=== PATIENT | female | born 1995 | race African-American/Black ===

== ENCOUNTER 2023-10-02 12:48 | Emergency (ER) | payer OTHER, SELFPAY ==
[2023-10-02 12:53] VITALS: BP 111/84
[2023-10-02 14:00] VITALS: BP 117/85
--- NOTE | 2023-10-02 14:00 | ED.GENMED ---
History of Present Illness
General
Chief Complaint: Dehydration Symptoms
Source: patient
Time Seen by Provider: 10/02/23 13:29
History of Present Illness
History of Present Illness:
28yoF with a history of peptic ulcer disease and anxiety presenting for evaluation of dehydration symptoms. She reports feeling nauseous for the past 2-3 days. She had one episode of vomiting yesterday and one today. She also reports lightheadedness
and shortness of breath. She has a headache which she believes is from being dehydrated. She ran out of her Zofran at home which typically helps. The triage note documents abdominal pain which patient states is chronic for her due to her history of
ulcers and is no worse today.
Past History
Past History
ED Past Medical History: Asthma, GERD and Other (Left ovarian cyst)
ED Past Surgical History: None
Patient has exhibited threatening behavior?: No
PSI?: No
Social History
Tobacco: Smoker
Alcohol: None
Drug: None
Personal: Single
Living: with family
Employment: Employed
Phy Exam
General Physical Exam
General Presentation: well appearing and no apparent distress
General age: appears stated age
General Skin: warm and dry
General Habitus: normal
General Mental: alert
Cardiovascular Exam
Cardiovascular Exam: regular rate/rhythm and no murmur
Pulmonary Exam
Pulmonary Exam: lungs clear, no respiratory distress, no crackles and no wheezing
Gastrointestinal Exam
Gastrointestinal Exam: non tender, soft and non distended
Skin Exam
Skin Exam: normal color and warm/dry
Psychiatric Exam
Psychiatric Exam: normal mood/affect
Course
Orders/Labs/Results
Orders:
Orders
10/02/23 13:45
Electrocardiogram (*1) Urgent
Reason for Study: Chest Pain
EKG- Treatment ONCE
0.9% Sodium Chloride 1000 ml [Nss] 1,000 ml IV BOLUS
Ondansetron Injectable [Zofran] 4 mg IV NOW STA
Test Result ONCE
10/02/23 13:46
CR Chest - 2 Views Urgent
Comment:
Reason For Exam: SOB
10/02/23 13:47
Complete Blood Count/With Diff Urgent
Comprehensive Metabolic Panel Urgent
HCG, Serum Qualitative Screen Urgent
Magnesium Urgent
Manual Differential Urgent
10/02/23 13:55
Acetaminophen [Tylenol] 1,000 mg PO NOW STA
Abnormal Lab Results
10/02/23
13:47
RBC 3.58 L 10^6/uL
(4.20-5.40)
Hct 33.8 L %
(37.0-47.0)
MCH 33.5 H pg
(27.0-31.0)
MPV 11.3 H fL
(7.4-10.4)
Segmented Neutrophils 27 L %
(42-75)
Lymphocytes (Manual) 68 H %
(20-51)
10/02/23 13:47
10/02/23 13:47
Vital Signs
Initial and Last Documented VS:
Initial Vital Signs
Temp Pulse Resp BP Pulse Ox
99.7 F 98 18 111/84 98
10/02/23 12:53 10/02/23 12:53 10/02/23 12:53 10/02/23 12:53 10/02/23 12:53
Last Documented Vital Signs
Temp Pulse Resp BP Pulse Ox
99.7 F 81 17 117/85 100
10/02/23 12:53 10/02/23 14:00 10/02/23 14:00 10/02/23 14:00 10/02/23 14:00
MDM/Problems Addressed
Differential Diagnosis Includes:
28yoF here with nausea, lightheadedness, and intermittent vomiting x several days. Patient feeling dehydrated. She is afebrile and hemodynamically stable. She is well appearing in no distress. Exam is reassuring. Differential diagnosis includes but
is not limited to: dehydration, electrolyte abnormality, gastroenteritis,
Initial ED plan: Check abdominal labs, HCG, EKG, and CXR. No indication for abdominal imaging given benign exam. IV Zofran and fluid bolus for symptoms.
*EKG
Interpreted by ED Provider?: Yes
EKG Intrepretation Date: 10/02/23
EKG Intrepretation Time: 14:05
Heart Rate: 76
Rate: normal
Rhythm: sinus
[place]: normal axis
Interval: normal interval
QRS Pattern: normal QRS
Ischemia: no ischemia
*Critical Care Note
Total Time (30-74mins, 75-104mins- exclusive of procedures): Not Applicable
Update Note
Update Note:
Labs overall unremarkable including normal white count, electrolytes, renal function, LFTs. HCG is negative. EKG shows NSR without ischemic changes. CXR is clear. Patient is feeling significantly improved on reassessment and is tolerating PO intake.
She is stable for discharge. Script for Zofran provided. Advised close f/u with PCP. ED return precautions discussed. She expressed understanding and is agreeable to plan. Patient was discharged in stable condition.
ED Attending Note
-
Portions of this chart may have been created with voice recognition software.� Occasional wrong word or��sound alike� substitutions may have occurred due to the inherent limitations of voice recognition software.
Discharge Plan
Departure
Patient Disposition: Home (Routine Discharge)
Date of Disposition: 10/02/23
Time of Disposition: 15:34
Patient with high blood pressure during this ER visit?: No
Discharge Problem:
Nausea and vomiting
Instructions: Nausea and Vomiting, Adult (DC)
Prescriptions:
New
ondansetron 4 mg tablet,disintegrating
4 mg PO Q6H PRN (Reason: nausea and vomiting) Qty: 20 0RF
No Action
albuterol sulfate 90 mcg/actuation HFA aerosol inhaler
2 puff inhalation Q6H PRN (Reason: wheezing) Qty: 8.5 1RF
ondansetron 4 mg tablet,disintegrating
4 mg PO TIDPRN PRN (Reason: nausea/vomiting) Qty: 7 0RF
pziujdzfam-xyzvqtrieoylx-kjfg [Fioricet] 50-300-40 mg capsule
1 cap PO Q8H PRN (Reason: headache) Qty: 12 0RF
cefdinir 300 mg capsule
300 mg PO BID Qty: 14 0RF
phenazopyridine [Pyridium] 200 mg tablet
200 mg PO TID Qty: 6 0RF
doxycycline monohydrate 100 mg capsule
100 mg PO BID Qty: 14 0RF
Referrals:
UNKNOWN - PT DOES,NOT KNOW [Family Provider] -
Stand Alone Forms: Return to Work
Activity Restrictions/Additional Instructions:
Take Zofran as needed for nausea. Drink plenty of fluids and eat a bland diet (rice, applesauce, toast).
Please follow-up with your family doctor. Return to the ER with any worsening symptoms.
Interventions
Interventions:
*Risk Screen - Suicide Last Done: 10/02/23 12:53
*General Assessment Last Done: 10/02/23 12:53
*Neglect/Abuse Screening Last Done: 10/02/23 12:53
ED- Fall Risk Assessment Last Done: 10/02/23 16:39
*Nursing Disposition Last Done: 10/02/23 16:39
ED- Cardiac Assessment Last Done: 10/02/23 14:04
ED- Neurological Assessment Last Done: 10/02/23 14:04
ED- Pulmonary Assessment Last Done: 10/02/23 14:04
Discharge Date and Time
Discharge Date/Time: 10/02/23 16:40
Print Language: DIVEHI
[2023-10-02 14:02] LABS: Hematocrit 33.8 % (37.0-47.0); Mean Corp Hgb Conc. 35.5 g/dL (33.0-37.0); Mean Corpuscular Hgb 33.5 pg (27.0-31.0); Mean Corpuscular Volume 94.4 fL (81.0-99.0); Mean Platelet Volume 11.3 fL (7.4-10.4); Platelet Count 200 10^3/uL (130-400); Red Blood Cell Count 3.58 10^6/uL (4.20-5.40); Red Cell Dist. Width 12.9 % (11.5-14.5); White Blood Cell Count 5.8 10^3/uL (4.8-10.8)
[2023-10-02] MEDS: NSS 1000 IV (14:15)
[2023-10-02] MEDS: ZOFRAN 4 MG IV (14:15)
[2023-10-02] MEDS: TYLENOL 1000 MG PO (14:15)
[2023-10-02 14:17] LABS: HCG, Serum Qualitative Screen Negative
[2023-10-02 14:21] LABS: ALT (SGPT) 13 U/L (0-35); AST (SGOT) 21 U/L (14-36); Albumin 3.9 g/dl (3.5-5.0); Alkaline Phosphatase 47 U/L (38-126); Blood Urea Nitrogen 7 mg/dl (7-17); Calcium 9.2 mg/dl (8.4-10.2); Carbon Dioxide 29 mmol/L (22-30); Chloride 104 mmol/L (98-107); Glucose 80 mg/dl (70-99); Magnesium 1.8 mg/dl (1.6-2.3); Potassium 4.1 mmol/L (3.5-5.1); Sodium 139 mmol/L (135-145); Total Bilirubin 0.8 mg/dl (0.2-1.3); Total Protein 6.5 g/dl (6.3-8.2); eGFR > 60.00
[2023-10-02 14:43] LABS: Absolute Neutrophils -Man Diff 1.5 10^3/uL (1.4-6.5); Band Neutrophils 0 % (0-3); Eosinophils 1 % (0-6); Lymphocytes 68 % (20-51); Monocytes 4 % (2-9); Platelets Checked Yes; Segmented Neutrophils 27 % (42-75)
[2023-10-02 14:44] LABS: Normal RBC Morphology Yes; Total Cells Counted 100
== END 2023-10-02 16:40 | disposition home or self-care (01) ==
LOC: EMR 12:48
PROVIDERS: Physician Assistant; EMERGENCY PHYSICIAN Emergency Medicine
DX: R11.2 Nausea with vomiting, unspecified (principal); F41.9 Anxiety disorder, unspecified; J45.909 Unspecified asthma, uncomplicated; K21.9 Gastro-esophageal reflux disease without esophagitis; F17.200 Nicotine dependence, unspecified, uncomplicated; R51.9 Headache, unspecified; Z87.11 Personal history of peptic ulcer disease
CPT/HCPCS: 99283; 96374; 96361; 71046; 80053; 83735; 84703; 85025; 93005

== ENCOUNTER 2023-11-01 12:13 | Emergency (ER) | payer OTHER, SELFPAY ==
[2023-11-01] VITALS (7 sets, daily range): BP systolic 133–176; BP diastolic 91–100; BMI 20.5
--- NOTE | 2023-11-01 12:41 | ED.GENMED ---
History of Present Illness
General
Chief Complaint: Abdominal Symptoms
Source: patient
Exam Limitations: none
Time Seen by Provider: 11/01/23 12:32
Nursing documentation reviewed up to this point in time: agreed with
History of Present Illness
History of Present Illness:
28-year-old female with a past medical history of GERD, peptic ulcer disease presenting emergency department today with concerns of abdominal pain for the past few days and nausea and vomiting that started earlier this morning. Patient reports that
the pain is primarily in the epigastric region but radiates into the chest and tends to come and go. Patient notes 1 episode of loose stool earlier today but otherwise states that this has been normal for her. Patient denies any recent travel
outside the country, any recent antibiotics, any hematemesis, melena, rectal bleeding. Patient states that she follows with GI team at [facility] in [place]. Patient states that she took omeprazole 20 mg twice daily for a while but was
recently switched to pantoprazole 40 mg once daily. Patient denies history of intra-abdominal surgeries. Patient denies any fevers or chills, dizziness, lightheadedness.
Past History
Past History
ED Past Medical History: Asthma, GERD and Other (Left ovarian cyst)
ED Past Surgical History: None
Patient has exhibited threatening behavior?: No
PSI?: No
Social History
Tobacco: Smoker
Alcohol: None
Drug: None
Personal: Single
Living: with family
Employment: Employed
Review of Systems
Review of Systems
All Other Systems: ROS reviewed and negative except as documented in HPI and ROS
Phy Exam
Physical Exam
Physical Exam:
General: Patient is well appearing and in no acute distress; non-toxic
Skin: Warm and dry, no rashes or lesions
Head: Normocephalic, atraumatic
Eyes: Sclera non-icteric. EOMs intact.
Cardiac: Regular rate and rhythm, no murmurs
Pulm: Normal respiratory effort, no wheezes, rales, rhonchi
Abdomen: Mild epigastric abdominal tenderness to palpation. No palpable masses. Normoactive bowel sounds.
Neuro: CN II-XII intact, no focal neurologic deficits.
Psychiatric: Appropriate mood and affect.
Course
Orders/Labs/Results
Orders:
Orders
11/01/23 12:29
IV Insert/Care/Rem.- Treatment PRN
11/01/23 12:32
EKG [Electrocardiogram (*1)] Urgent
Reason for Study: Abdominal Pain
11/01/23 12:33
EKG- Treatment ONCE
11/01/23 12:36
Test Result ONCE
11/01/23 12:42
Complete Blood Count/With Diff Urgent
Comprehensive Metabolic Panel Urgent
HCG, Serum Qualitative Screen Urgent
Lipase Urgent
Urinalysis Reflex To Culture Urgent
Date Specimen was Collected: 11/01/23
Time Specimen was Collected: 12:29
11/01/23 13:21
Famotidine [Pepcid] 20 mg IV NOW STA
Ondansetron Injectable [Zofran] 4 mg IV NOW STA
11/01/23 13:30
US Abdomen Limited Urgent
Comment:
Reason For Exam: upper abdominal pain, LFT elevation
11/01/23 13:37
CR Obstruct Series W/pa Chest Urgent
Comment:
Reason For Exam: upper abdominal pain
11/01/23 13:48
0.9% Sodium Chloride 1000 ml [Nss] 1,000 ml IV BOLUS
11/01/23 16:25
Mag Hydrox/Al Hydrox/Simeth [Maalox] 30 ml Phenobarb/Hyoscy/Atropine/Scop [] 10 ml PO NOW
11/01/23 16:32
Mag Hydrox/Al Hydrox/Simeth [Maalox] 30 ml .ROUTE .STK-MED ONE
Phenobarb/Hyoscy/Atropine/Scop [] 10 ml .ROUTE .STK-MED ONE
Abnormal Lab Results
11/01/23
12:42
MCH 31.9 H pg
(27.0-31.0)
MPV 10.7 H fL
(7.4-10.4)
Absolute Lymphs (auto) 1.1 L 10^3/uL
(1.2-3.4)
Neutrophils % 80.8 H %
(42.2-75.2)
Lymphocytes % 15.0 L %
(20.5-51.1)
Glucose 111 H mg/dl
(70-99)
AST 261 H U/L
(14-36)
ALT 170 H U/L
(0-35)
11/01/23 12:42
11/01/23 12:42
Vital Signs
Initial and Last Documented VS:
Initial Vital Signs
Temp Pulse Resp BP Pulse Ox
98.7 F 54 20 176/99 100
11/01/23 12:17 11/01/23 12:17 11/01/23 12:17 11/01/23 12:17 11/01/23 12:17
Last Documented Vital Signs
Temp Pulse Resp BP Pulse Ox
98.7 F 77 18 134/95 100
11/01/23 12:17 11/01/23 17:48 11/01/23 17:48 11/01/23 17:48 11/01/23 17:48
MDM/Problems Addressed
Differential Diagnosis Includes:
ddx include gastritis, duodenitis, peptic ulcer disease, gastroenteritis, dyspepsia, pancreatitis, cholecystitis, choledocholithiasis
MDM/Problems Addressed:
Upper abdominal pain:
28-year-old female with a past medical history of GERD, peptic ulcer disease presenting emergency department today with concerns of abdominal pain for the past few days and nausea and vomiting that started earlier this morning. Patient reports that
the pain is primarily in the epigastric region but radiates into the chest and tends to come and go. On physical exam, she is well appearing and does not have significant tenderness. She is afebrile. Her lab work shows an elevation in her LFTs but
no leukocytosis. Ultrasound of the abdomen was obtained which was negative for biliary pathology, showed normal appearance of the pancreas. CXR shows moderate amount of stool within the colon but no radiographic evidence of obstruction or free
peritoneal air. Patient was treated with zofran, GI cocktail, fluids, did note a mild improvement in her symptoms. Suspect patient symptoms likely reflect dyspepsia. Advised patient to follow up with her GI and have her LFTs repeated. Patient stable
for discharge.
Chronic conditions affecting care:
GERD, asthma, hypothyroidism
Acute Exacerbation and/or Progression of Chronic Illness:
n/a
*Pulse Oximetry
Patient hypoxic: no
*Critical Care Note
Total Time (30-74mins, 75-104mins- exclusive of procedures): Not Applicable
Data Reviewed
Review of Other/Old Records Reveals: Records (reviewed ER physician documentation from 10/02/23 where patient was seen for nausea and vomiting, workup unremarkable at the time, sent home with zofran; ) and Discharge Summary (no discharge summaries in
[facility] to review )
Source: patient and records
Prescriptions/Medications Considered But Not Given:
n/a
Further Testing Considered But Not Given:
n/a
Patient Management
Escalation/DeEscalation of care consider admission/obs:
Reviewed case with my attendings Dr. Peña and Dr. Lomeli. Patient stable for discharge.
Update Note
Update Note:
Considering upper abdominal pain and elevation of LFTs, will obtain upper abdominal ultrasound to evaluate for biliary pathology.
ED Attending Note
-
Portions of this chart may have been created with voice recognition software.� Occasional wrong word or��sound alike� substitutions may have occurred due to the inherent limitations of voice recognition software.
Discharge Plan
Departure
Patient Disposition: Home (Routine Discharge)
Date of Disposition: 11/01/23
Time of Disposition: 16:48
Patient with high blood pressure during this ER visit?: Yes
Condition: Good
Discharge Problem:
Abdominal pain
Instructions: Yell Diet, Nausea and Vomiting, Adult (DC), Abdominal Pain
Prescriptions:
New
ondansetron 4 mg tablet,disintegrating
4 mg PO Q8H PRN (Reason: nausea and vomiting) Qty: 8 0RF
No Action
albuterol sulfate 90 mcg/actuation HFA aerosol inhaler
2 puff inhalation Q6H PRN (Reason: wheezing) Qty: 8.5 1RF
ondansetron 4 mg tablet,disintegrating
4 mg PO TIDPRN PRN (Reason: nausea/vomiting) Qty: 7 0RF
qondmjebhk-bczrxyxwjjecp-hpwy [Fioricet] 50-300-40 mg capsule
1 cap PO Q8H PRN (Reason: headache) Qty: 12 0RF
cefdinir 300 mg capsule
300 mg PO BID Qty: 14 0RF
phenazopyridine [Pyridium] 200 mg tablet
200 mg PO TID Qty: 6 0RF
doxycycline monohydrate 100 mg capsule
100 mg PO BID Qty: 14 0RF
ondansetron 4 mg tablet,disintegrating
4 mg PO Q6H PRN (Reason: nausea and vomiting) Qty: 20 0RF
Referrals:
UNKNOWN - PT DOES,NOT KNOW [Family Provider] -
Stand Alone Forms: Return to Work
Activity Restrictions/Additional Instructions:
Your liver function tests were elevated today. Please have these values repeated with GI doctor.
Your ultrasound was negative.
Zofran has been sent to your pharmacy. You can dissolve one tablet under the tongue every 8 hours as needed.
Please follow up with your primary care provider. Please return emergency department should you experience chest pain, shortness of breath, vomiting blood, dark tarry stools, lightheadedness, dizziness, fevers or chills, or any other signs or
symptoms concerning to you.
Interventions
Interventions:
*Risk Screen - Suicide Last Done: 11/01/23 12:17
*General Assessment Last Done: 11/01/23 12:27
*Neglect/Abuse Screening Last Done: 11/01/23 12:17
ED- Fall Risk Assessment Last Done: 11/01/23 12:27
*ED COVID-19 Vaccine History Last Done: 11/01/23 12:17
*Nursing Disposition Last Done: 11/01/23 17:48
SR-Vteidk-Pbjbsipmqk Assessment Last Done: 11/01/23 12:27
Discharge Date and Time
Discharge Date/Time: 11/01/23 17:49
Print Language: PORTUGUESE
[2023-11-01 12:50] LABS: Urine Albumin Negative (Neg - Trace); Urine Bilirubin Negative (Negative); Urine Character Clear (Clear); Urine Color Yellow; Urine Glucose Negative (Negative); Urine Ketone Negative (Negative); Urine Leukocyte Negative (Negative); Urine Nitrite Negative (Negative); Urine Occult Blood Negative (Negative); Urine Urobilinogen Negative (Neg - 1+)
[2023-11-01 12:53] LABS: % Basophils 0.4 % (0-2); % Eosinophils 0.4 % (0-6); % Immature Granulocytes 0.3 % (0-0.5); % Monocytes 3.1 % (1.7-9.3); % Neutrophils 80.8 % (42.2-75.2); Absolute Lymphocytes 1.1 10^3/uL (1.2-3.4); Absolute Monocytes 0.2 10^3/uL (0.1-0.6); Absolute Neutrophils 6.1 10^3/uL (1.4-6.5); Hematocrit 39.8 % (37.0-47.0); Hemoglobin 13.8 g/dL (12.0-16.0); Mean Corp Hgb Conc. 34.7 g/dL (33.0-37.0); Mean Corpuscular Hgb 31.9 pg (27.0-31.0); Mean Corpuscular Volume 92.1 fL (81.0-99.0); Mean Platelet Volume 10.7 fL (7.4-10.4); Nucleated Red Blood Cells % 0 %; Platelet Count 239 10^3/uL (130-400); Red Blood Cell Count 4.32 10^6/uL (4.20-5.40); Red Cell Dist. Width 13.2 % (11.5-14.5); White Blood Cell Count 7.5 10^3/uL (4.8-10.8)
[2023-11-01 13:01] LABS: HCG, Serum Qualitative Screen Negative
[2023-11-01 13:05] LABS: ALT (SGPT) 170 U/L (0-35); AST (SGOT) 261 U/L (14-36); Albumin 4.5 g/dl (3.5-5.0); Alkaline Phosphatase 71 U/L (38-126); Blood Urea Nitrogen 8 mg/dl (7-17); Calcium 9.9 mg/dl (8.4-10.2); Carbon Dioxide 28 mmol/L (22-30); Chloride 101 mmol/L (98-107); Estimated Creatinine Clearance > 125 ml/min; Glucose 111 mg/dl (70-99); Potassium 4.4 mmol/L (3.5-5.1); Sodium 136 mmol/L (135-145); Total Protein 7.5 g/dl (6.3-8.2); eGFR > 60.00
[2023-11-01] MEDS: PEPCID 20 MG IV (13:50)
[2023-11-01] MEDS: ZOFRAN 4 MG IV (13:50)
[2023-11-01] MEDS: NSS 1000 IV (13:53)
[2023-11-01 14:15] LABS: Lipase 51 U/L (23-300)
[2023-11-01] MEDS: MAALOX 40 PO (16:34)
--- NOTE | 2023-11-01 17:47 | EDRN ---
Reviewed discharge instructions with patient. Verbalized understanding.
== END 2023-11-01 17:49 | disposition home or self-care (01) ==
LOC: EMR 12:13
PROVIDERS: Emergency Medicine; EMERGENCY PHYSICIAN Emergency Medicine
DX: R10.13 Epigastric pain (principal); R11.2 Nausea with vomiting, unspecified; K21.9 Gastro-esophageal reflux disease without esophagitis; E03.9 Hypothyroidism, unspecified; F17.200 Nicotine dependence, unspecified, uncomplicated; J45.909 Unspecified asthma, uncomplicated; Z79.899 Other long term (current) drug therapy; Z87.11 Personal history of peptic ulcer disease
CPT/HCPCS: 99284; 96374; 96375; 96361; 74022; 76705; 80053; 81003; 83690; 84703; 85025; 93005

== ENCOUNTER 2023-12-09 16:22 | Emergency (ER) | payer OTHER, SELFPAY ==
[2023-12-09 16:24] VITALS: BP 129/65
--- NOTE | 2023-12-09 17:29 | EDRN ---
Lio MONTGOMERY currently at the pts bedside speaking with the pt and the pts family
--- NOTE | 2023-12-09 17:35 | ED.GENMED ---
History of Present Illness
General
Chief Complaint: Abdominal Symptoms
Source: patient and family
Exam Limitations: none
Time Seen by Provider: 12/09/23 16:56
Nursing documentation reviewed up to this point in time: agreed with
History of Present Illness
History of Present Illness:
28-year-old female past medical history of ovarian cysts anxiety depression and asthma presenting to the emergency department today with concerns of left-sided pelvic pain starting yesterday worsening today nausea and vomiting since yesterday as
well not able to eat or drink today also feels mildly lightheaded secondary to the pain. Had similar symptoms in the past from her fibroid or ovarian cyst. Denies any chest pain shortness of breath no significant changes in bowel movements.
Past History
Past History
ED Past Medical History: Asthma, GERD and Other (Left ovarian cyst)
ED Past Surgical History: None
Patient has exhibited threatening behavior?: No
PSI?: No
Social History
Tobacco: Smoker
Alcohol: None
Drug: None
Personal: Single
Living: with family
Employment: Employed
Review of Systems
Review of Systems
Allergies reviewed?: Yes
All Other Systems: ROS reviewed and negative except as documented in HPI and ROS
Phy Exam
Physical Exam
Physical Exam:
GENERAL: Alert , in no apparent distress
EYE: pupils equal and reactive
NECK: Supple, no significant adenopathy.
ENT: o/p clr, mmm.
CARDIAC: Regular rate and rhythm .
LUNGS: Clear breath sounds bilaterally, no acute respiratory distress, no wheezes/rales/rhonchi
ABDOMEN: Left-sided pelvic pain to palpation otherwise soft abdomen, remainder of the abdomen without focal tenderness, no r/g, no cvat
NEUROLOGICAL: Alert and oriented, no focal neuro deficits
SKIN: Warm and dry, skin intact.
MUSCULOSKELETAL: No edema, well perfused.
PSYCH: Normal and appropriate interaction.
Course
Orders/Labs/Results
Orders:
Orders
12/09/23 17:34
0.9% Sodium Chloride 1000 ml [Nss] 1,000 ml IV BOLUS
Morphine Sulfate 4 mg IV NOW STA
Ondansetron Injectable [Zofran] 4 mg IV NOW STA
US Pelvis W Transvag Combined Urgent
Reason For Exam: left pelvic pain
12/09/23 17:35
Test Result ONCE
12/09/23 17:47
Complete Blood Count/With Diff Urgent
Comprehensive Metabolic Panel Urgent
HCG, Serum Qualitative Screen Urgent
Urinalysis Reflex To Culture Urgent
Specimen Description:
Date Specimen was Collected: 12/09/23
Time Specimen was Collected: 17:41
Urine Microscopic Reflex Cult Urgent
12/09/23 21:20
Morphine Sulfate 4 mg IV NOW STA
Abnormal Lab Results
12/09/23
17:47
RBC 3.74 L 10^6/uL
(4.20-5.40)
Hct 34.3 L %
(37.0-47.0)
MCH 32.4 H pg
(27.0-31.0)
MPV 10.9 H fL
(7.4-10.4)
Ur Occult Blood Reflex 4+ A
(Negative)
Leukocyte Esterase Rfl Trace A
(Negative)
Urine RBC 80-90 A /HPF
(0-2)
12/09/23 17:47
12/09/23 17:47
Vital Signs
Initial and Last Documented VS:
Initial Vital Signs
Temp Pulse Resp BP Pulse Ox
98.9 F 58 16 129/65 98
12/09/23 16:24 12/09/23 16:24 12/09/23 16:24 12/09/23 16:24 12/09/23 16:24
Last Documented Vital Signs
Temp Pulse Resp BP Pulse Ox
98.9 F 82 16 121/83 99
12/09/23 16:24 12/09/23 18:41 12/09/23 18:41 12/09/23 18:41 12/09/23 18:41
MDM/Problems Addressed
MDM/Problems Addressed:
48-year-old female presenting to the emergency department today with concerns of left pelvic discomfort. Does have a history of ovarian cyst. And fibroids. Here vital signs normal labs unremarkable ultrasound was performed of the pelvic region
concerning her history not have a 3.4 cm left ovarian hemorrhagic cyst as well as a fibroid. Likely causing symptoms and signs of torsion pain well-controlled with dose of morphine here otherwise stable for outpatient follow-up with gynecology.
Return precautions given.
*Critical Care Note
Total Time (30-74mins, 75-104mins- exclusive of procedures): Not Applicable
ED Attending Note
-
Portions of this chart may have been created with voice recognition software.� Occasional wrong word or��sound alike� substitutions may have occurred due to the inherent limitations of voice recognition software.
Discharge Plan
Departure
Patient Disposition: Home (Routine Discharge)
Date of Disposition: 12/09/23
Time of Disposition: 21:29
Patient with high blood pressure during this ER visit?: No
Condition: Good
Covid-19: Not Applicable
Discharge Problem:
Hemorrhagic cyst of left ovary
Instructions: Ovarian Cyst ED
Prescriptions:
New
oxycodone-acetaminophen [Percocet] 5-325 mg tablet
1 tab PO Q8H PRN (Reason: Pain) Qty: 7 0RF
No Action
albuterol sulfate 90 mcg/actuation HFA aerosol inhaler
2 puff inhalation Q6H PRN (Reason: wheezing) Qty: 8.5 1RF
dcvsfnxqok-mwiubzfljpdmv-bani [Fioricet] 50-300-40 mg capsule
1 cap PO Q8H PRN (Reason: headache) Qty: 12 0RF
Referrals:
UNKNOWN - PT DOES,NOT KNOW [Family Provider] -
Activity Restrictions/Additional Instructions:
You came to the emergency department today with concerns of pelvic discomfort. You are found to have a hemorrhagic cyst. Please feel closely with a dietetic tech. Return to the emergency department for any worsening, new or concerning symptoms.
Interventions
Interventions:
*Risk Screen - Suicide Last Done: 12/09/23 16:25
*General Assessment Last Done: 12/09/23 17:55
*Neglect/Abuse Screening Last Done: 12/09/23 16:25
ED- Fall Risk Assessment Last Done: 12/09/23 17:55
*ED COVID-19 Vaccine History Last Done: 12/09/23 17:55
YA-Rmkchl-Oplijlzfbu Assessment Last Done: 12/09/23 17:55
Discharge Date and Time
Print Language: [place]IZ[place]
[2023-12-09 17:42] VITALS: BMI 21.2
[2023-12-09] MEDS: NSS 1000 IV (17:44)
[2023-12-09] MEDS: ZOFRAN 4 MG IV (17:44)
[2023-12-09] MEDS: MORPHINE SULFATE 4 MG IV ×2 (17:44→21:26)
[2023-12-09 17:56] LABS: % Basophils 0.5 % (0-2); % Eosinophils 0.9 % (0-6); % Immature Granulocytes 0.2 % (0-0.5); % Lymphocytes 32.9 % (20.5-51.1); % Monocytes 8.1 % (1.7-9.3); % Neutrophils 57.4 % (42.2-75.2); Absolute Eosinophils 0.1 10^3/uL (0-0.7); Absolute Lymphocytes 2.2 10^3/uL (1.2-3.4); Absolute Monocytes 0.5 10^3/uL (0.1-0.6); Absolute Neutrophils 3.8 10^3/uL (1.4-6.5); Hematocrit 34.3 % (37.0-47.0); Hemoglobin 12.1 g/dL (12.0-16.0); Mean Corp Hgb Conc. 35.3 g/dL (33.0-37.0); Mean Corpuscular Hgb 32.4 pg (27.0-31.0); Mean Corpuscular Volume 91.7 fL (81.0-99.0); Mean Platelet Volume 10.9 fL (7.4-10.4); Nucleated Red Blood Cells % 0 %; Platelet Count 223 10^3/uL (130-400); Red Blood Cell Count 3.74 10^6/uL (4.20-5.40); Red Cell Dist. Width 13.8 % (11.5-14.5); White Blood Cell Count 6.6 10^3/uL (4.8-10.8)
[2023-12-09 18:00] VITALS: BP 121/83
[2023-12-09 18:06] LABS: Urine Albumin Trace (Neg - Trace); Urine Bilirubin Negative (Negative); Urine Character Very Cloudy (Clear); Urine Color Yellow; Urine Glucose Negative (Negative); Urine Ketone Negative (Negative); Urine Leukocyte Trace (Negative); Urine Nitrite Negative (Negative); Urine Occult Blood 4+ (Negative); Urine Urobilinogen Negative (Neg - 1+)
[2023-12-09 18:07] LABS: HCG, Serum Qualitative Screen Negative
[2023-12-09 18:10] LABS: ALT (SGPT) 11 U/L (0-35); AST (SGOT) 17 U/L (14-36); Albumin 3.8 g/dl (3.5-5.0); Alkaline Phosphatase 54 U/L (38-126); Blood Urea Nitrogen 11 mg/dl (7-17); Calcium 9.7 mg/dl (8.4-10.2); Carbon Dioxide 26 mmol/L (22-30); Chloride 103 mmol/L (98-107); Estimated Creatinine Clearance 117 ml/min; Glucose 76 mg/dl (70-99); Sodium 140 mmol/L (135-145); Total Bilirubin 0.9 mg/dl (0.2-1.3); Total Protein 6.4 g/dl (6.3-8.2); eGFR > 60.00
[2023-12-09 18:13] LABS: Urine Squamous Cell >30 /LPF (Few)
[2023-12-09 18:14] LABS: Urine Red Blood Cell 80-90 /HPF (0-2)
[2023-12-09 18:15] LABS: Urine White Cell 0-2 /HPF (0-5)
[2023-12-09 18:41] VITALS: BP 121/83
[2023-12-09 21:31] VITALS: BP 143/96
== END 2023-12-09 21:51 | disposition home or self-care (01) ==
LOC: EMR 16:22
PROVIDERS: Physician Assistant; EMERGENCY PHYSICIAN Student in an Organized Health Care Education/Training Program
DX: N83.202 Unspecified ovarian cyst, left side (principal); F17.200 Nicotine dependence, unspecified, uncomplicated; F41.9 Anxiety disorder, unspecified; F32.A Depression, unspecified; J45.909 Unspecified asthma, uncomplicated
CPT/HCPCS: 99284; 96374; 96375; 96361; 96376; 76830; 76856; 80053; 81003; 81015; 84703; 85025

== ENCOUNTER 2023-12-20 13:00 | Emergency (ER) | payer OTHER, SELFPAY ==
[2023-12-20 13:04] VITALS: BP 108/70
--- NOTE | 2023-12-20 13:24 | ED.GENMED ---
History of Present Illness
General
Chief Complaint: Dizziness
Time Seen by Provider: 12/20/23 13:23
History of Present Illness
History of Present Illness:
HPI: Earlier today, the patient had a panic attack associated with other symptoms. She had frontal headache associated with photophobia and nausea. The headache persists but the nausea has improved. She has had anxiety problems in the past but
does not take any benzos. She has never been diagnosed with migraines. She states that she feels dehydrated. She also states that she was recently diagnosed with hyperthyroidism.
EXAM:
GENERAL: Well appearing in minimal if any distress, appears photophobic
HEENT: Moist oral mucosa
CARDIOVASCULAR: No murmurs, normal heart rate, regular rhythm, No chest wall tenderness
PULMONARY: No respiratory distress, breath sounds are clear and equal
ABDOMEN: Soft with no peritoneal signs, no tenderness
NEUROLOGIC: Excellent strength all extremities, no coordination deficits
PSYCHIATRIC: Appropriate mental status, normal insight and judgement
EXTREMITIES: Nontender, no edema, moves all extremities equally
SKIN: No rash, no lesions
TIME OF INITIAL ENCOUNTER: 1:25 PM
NUMBER AND COMPLEXITY OF PROBLEMS ADDRESSED AT THE ENCOUNTER
� Chronic conditions affecting care: Asthma, smoker, ovarian cyst, hypothyroidism, anxiety/depression
� Acute Exacerbation and/or Progression of Chronic Illness: This is an acute problem but is had similar episodes in the past
� Differential Diagnosis includes: Anxiety, dehydration, viral syndrome, migraine
AMOUNT AND/OR COMPLEXITY OF DATA TO BE REVIEWED AND ANALYZED
� I performed an independent evaluation of and my interpretation is:
EKG:
CT:
X-rays:
Laboratory Studies: White count normal, hemoglobin slightly low at 11.0, chemistries unremarkable, TSH low but free T4 normal
Other:
� Review of other/old records: I reviewed records, the patient had a CBC that was normal less than 2 weeks ago. hCG test and chemistries were also unremarkable at that time.
� Clinical information was obtained by an independent historian: None needed
� Prescriptions/Medications Considered but not given:
� Further testing considered but not performed: Considered CT imaging of the brain however the patient has a normal neurologic examination
RISK OF COMPLICATIONS AND/OR MORBIDITY OR MORTALITY OF PATIENT MANAGEMENT
� Social determinants of health affecting care: Lives at home, drove self here
� Discussion with other providers:
� Escalation of care including admission/observation vs risk of discharge considered: Will give IV fluids, and check labs including thyroid. Will also try medicines for the possibly migraine type of headache. On reassessment
prior to discharge, the patient does feel improvement driving home and does not feel sedate.
Past History
Past History
ED Past Medical History: Asthma, GERD and Other (Left ovarian cyst)
ED Past Surgical History: None
Patient has exhibited threatening behavior?: No
PSI?: No
Social History
Tobacco: Smoker
Alcohol: None
Drug: None
Personal: Single
Living: with family
Employment: Employed
Phy Exam
Physical Exam
Physical Exam:
See HPI
Course
Orders/Labs/Results
Orders:
Orders
12/20/23 13:29
0.9% Sodium Chloride 1000 ml [Nss] 1,000 ml IV BOLUS
Diphenhydramine [Benadryl] 25 mg IV NOW STA
Ketorolac [Toradol] 15 mg IV NOW STA
Metoclopramide [Reglan] 10 mg IV NOW STA
12/20/23 13:34
Test Result ONCE
12/20/23 13:42
Comprehensive Metabolic Panel Urgent
Free T4 Urgent
HCG, Serum Qualitative Screen Urgent
Lipase Urgent
Magnesium Urgent
TSH Reflex To Free T4 Urgent
12/20/23 13:43
Complete Blood Count/With Diff Urgent
Abnormal Lab Results
12/20/23 12/20/23
13:42 13:43
RBC 3.44 L 10^6/uL
(4.20-5.40)
Hgb 11.0 L g/dL
(12.0-16.0)
Hct 32.0 L %
(37.0-47.0)
MCH 32.0 H pg
(27.0-31.0)
RDW 14.6 H %
(11.5-14.5)
MPV 10.9 H fL
(7.4-10.4)
Alkaline Phosphatase 34 L U/L
(38-126)
Total Protein 6.2 L g/dl
(6.3-8.2)
TSH (Reflex) 0.39 L uIU/ml
(0.47-4.68)
12/20/23 13:43
12/20/23 13:42
Vital Signs
Initial and Last Documented VS:
Initial Vital Signs
Temp Pulse Resp BP Pulse Ox
98.1 F 73 16 108/70 98
12/20/23 13:04 12/20/23 13:04 12/20/23 13:04 12/20/23 13:04 12/20/23 13:04
Last Documented Vital Signs
Temp Pulse Resp BP Pulse Ox
98.1 F 73 16 114/69 99
12/20/23 13:04 12/20/23 13:04 12/20/23 13:04 12/20/23 15:47 12/20/23 15:47
*Critical Care Note
Total Time (30-74mins, 75-104mins- exclusive of procedures): Not Applicable
ED Attending Note
-
Portions of this chart may have been created with voice recognition software.� Occasional wrong word or��sound alike� substitutions may have occurred due to the inherent limitations of voice recognition software.
Discharge Plan
Departure
Patient Disposition: Home (Routine Discharge)
Date of Disposition: 12/20/23
Time of Disposition: 15:43
Patient with high blood pressure during this ER visit?: Yes
Discharge Problem:
Dizziness
Instructions: Migraine in adults, Dizziness
Prescriptions:
No Action
albuterol sulfate 90 mcg/actuation HFA aerosol inhaler
2 puff inhalation Q6H PRN (Reason: wheezing) Qty: 8.5 1RF
iqnncplicm-hjgdxlgblaqfm-hzwm [Fioricet] 50-300-40 mg capsule
1 cap PO Q8H PRN (Reason: headache) Qty: 12 0RF
oxycodone-acetaminophen [Percocet] 5-325 mg tablet
1 tab PO Q8H PRN (Reason: Pain) Qty: 7 0RF
Referrals:
PRIVATE,PHYSICIAN [Family Provider] -
Activity Restrictions/Additional Instructions:
The way you describe the headache very well could be a migraine type of headache. We gave you Reglan with Benadryl along with Toradol. We also gave IV fluids. Main thyroid numbers normal. You are not . Liver and pancreas numbers are
normal. Other chemistry levels are normal. Hemoglobin is just slightly low at 11.0. White blood cell count is normal. Return here if worse or other concerns and follow-up your primary care doctor
Interventions
Interventions:
*Risk Screen - Suicide Last Done: 12/20/23 13:04
*General Assessment Last Done: 12/20/23 14:16
*Neglect/Abuse Screening Last Done: 12/20/23 13:04
ED- Fall Risk Assessment Last Done: 12/20/23 16:01
*Nursing Disposition Last Done: 12/20/23 16:01
ED- Neurological Assessment Last Done: 12/20/23 14:16
Discharge Date and Time
Discharge Date/Time: 12/20/23 16:02
Print Language: SWEDISH
[2023-12-20] MEDS: NSS 1000 IV (13:40)
[2023-12-20] MEDS: REGLAN 10 MG IV (13:41)
[2023-12-20] MEDS: TORADOL 15 MG IV (13:41)
[2023-12-20] MEDS: BENADRYL 25 MG IV (13:41)
[2023-12-20 14:00] LABS: % Basophils 0.5 % (0-2); % Immature Granulocytes 0.2 % (0-0.5); % Lymphocytes 48.2 % (20.5-51.1); % Monocytes 7.2 % (1.7-9.3); % Neutrophils 42.9 % (42.2-75.2); Absolute Eosinophils 0.1 10^3/uL (0-0.7); Absolute Lymphocytes 2.9 10^3/uL (1.2-3.4); Absolute Monocytes 0.4 10^3/uL (0.1-0.6); Absolute Neutrophils 2.6 10^3/uL (1.4-6.5); Mean Corp Hgb Conc. 34.4 g/dL (33.0-37.0); Mean Platelet Volume 10.9 fL (7.4-10.4); Nucleated Red Blood Cells % 0 %; Platelet Count 195 10^3/uL (130-400); Red Blood Cell Count 3.44 10^6/uL (4.20-5.40); Red Cell Dist. Width 14.6 % (11.5-14.5); White Blood Cell Count 6.1 10^3/uL (4.8-10.8)
[2023-12-20 14:19] LABS: HCG, Serum Qualitative Screen Negative
[2023-12-20 14:36] LABS: ALT (SGPT) 12 U/L (0-35); AST (SGOT) 18 U/L (14-36); Albumin 3.6 g/dl (3.5-5.0); Alkaline Phosphatase 34 U/L (38-126); Blood Urea Nitrogen 12 mg/dl (7-17); Calcium 9.1 mg/dl (8.4-10.2); Carbon Dioxide 27 mmol/L (22-30); Chloride 103 mmol/L (98-107); Glucose 76 mg/dl (70-99); Magnesium 1.8 mg/dl (1.6-2.3); Potassium 4.5 mmol/L (3.5-5.1); Sodium 139 mmol/L (135-145); Total Bilirubin 0.8 mg/dl (0.2-1.3); Total Protein 6.2 g/dl (6.3-8.2); eGFR > 60.00
[2023-12-20 14:45] LABS: Lipase 53 U/L (23-300)
[2023-12-20 15:01] LABS: TSH Reflex To Free T4 0.39 uIU/ml (0.47-4.68)
[2023-12-20 15:30] LABS: Free T4 0.89 ng/dl (0.78-2.19)
[2023-12-20 15:47] VITALS: BP 114/69
== END 2023-12-20 16:02 | disposition home or self-care (01) ==
LOC: EMR 13:00
PROVIDERS: EMERGENCY PHYSICIAN Emergency Medicine
DX: R42 Dizziness and giddiness (principal); F41.0 Panic disorder [episodic paroxysmal anxiety]; E05.90 Thyrotoxicosis, unspecified without thyrotoxic crisis or storm; J45.909 Unspecified asthma, uncomplicated; K21.9 Gastro-esophageal reflux disease without esophagitis; F17.200 Nicotine dependence, unspecified, uncomplicated
CPT/HCPCS: 99283; 96374; 96375; 96361; 80053; 83690; 83735; 84439; 84443; 84703; 85025